=== PATIENT | female | born 1960 | race Caucasian/White ===

== ENCOUNTER → 2017-01-08 | Outpatient (CLI) | payer BC ==
[~2017-01-08] MED LIST: HYDR25TAB PO
[2017-01-08 18:25] LABS: FREE T4 1.42 NG/DL (0.76-1.46)
== END ==
LOC: M LAB 16:36
PROVIDERS: ATTEND Physician Assistant Medical
DX: E03.9 Hypothyroidism, unspecified (principal)

== ENCOUNTER → 2017-06-19 | Outpatient (CLI) | payer BC ==
[2017-06-19 19:05] LABS: FREE T4 1.24 NG/DL (0.76-1.46)
== END ==
LOC: M LAB 17:02
PROVIDERS: ATTEND Internal Medicine Endocrinology, Diabetes & Metabolism
DX: E03.9 Hypothyroidism, unspecified (principal)

== ENCOUNTER → 2018-02-11 | Outpatient (CLI) | payer BC | LOC: M RAD 10:46 | DX: Z12.31 Encounter for screening mammogram for malignant neoplasm of breast (principal) | CPT/HCPCS: 77067 ==

== ENCOUNTER → 2018-06-03 | Outpatient (CLI) | payer BC ==
[2018-06-03 18:24] LABS: FREE T4 1.37 NG/DL (0.76-1.46); THYROID STIMULATING HORMONE 0.074 uIU/ML (0.358-3.740)
== END ==
LOC: M LAB 17:01
DX: E03.9 Hypothyroidism, unspecified (principal)
CPT/HCPCS: 84443

== ENCOUNTER → 2018-09-09 | Outpatient (CLI) | payer BC ==
[2018-09-09 18:16] LABS: FREE T4 1.21 NG/DL (0.76-1.46)
== END ==
LOC: M LAB 17:14
DX: E03.9 Hypothyroidism, unspecified (principal)
CPT/HCPCS: 84443

== ENCOUNTER → 2018-09-09 | Outpatient (CLI) | payer BC ==
[2018-09-09 18:10] LABS: ALBUMIN 3.3 GM/DL (3.2-5.2); ALBUMIN/GLOBULIN RATIO 0.79 (1.00-1.93); ALKALINE PHOSPHATASE 88 U/L (45-117); ALT/SGPT 24 U/L (12-78); ANION GAP 7 MEQ/L (8-16); AST/SGOT 20 U/L (7-37); BILIRUBIN,TOTAL 0.2 MG/DL (0.2-1.0); BLOOD UREA NITROGEN 15 MG/DL (7-18); CALCIUM LEVEL 8.7 MG/DL (8.5-10.1); CARBON DIOXIDE LEVEL 33 MEQ/L (21-32); CHLORIDE LEVEL 104 MEQ/L (98-107); CHOLESTEROL LEVEL 186 MG/DL (<200); CHOLESTEROL RISK RATIO 3.875 (<5); CREATININE FOR GFR 1.21 MG/DL (0.55-1.30); GLOMERULAR FILTRATION RATE 48.8 (>51); GLUCOSE, FASTING 87 MG/DL (70-100); HDL CHOLESTEROL 48 MG/DL (>40); LDL CHOLESTEROL 104 MG/DL (<100); NON-HDL-C 138 MG/DL; POTASSIUM SERUM 3.2 MEQ/L (3.5-5.1); SODIUM LEVEL 144 MEQ/L (136-145); TOTAL PROTEIN 7.5 GM/DL (6.4-8.2); TRIGLYCERIDES LEVEL 168 MG/DL (<150)
[2018-09-09 18:17] LABS: TOTAL 25(OH) VITAMIN D 21.4 NG/ML (30.0-100.0)
== END ==
LOC: M LAB 17:18
DX: Z00.00 Encounter for general adult medical examination without abnormal findings (principal); E55.9 Vitamin D deficiency, unspecified
CPT/HCPCS: 80053

== ENCOUNTER → 2019-01-09 | Outpatient (CLI) | payer BC ==
[2019-01-09 17:54] LABS: FREE T4 1.28 NG/DL (0.76-1.46); THYROID STIMULATING HORMONE 0.39 uIU/ML (0.358-3.740)
== END ==
LOC: M LAB 16:47
PROVIDERS: ATTEND Nurse Practitioner Family
DX: E03.9 Hypothyroidism, unspecified (principal)

== ENCOUNTER → 2019-07-08 | Outpatient (CLI) | payer BC ==
[~2019-07-08] MED LIST changes: +HYDR-2541 PO; -HYDR25TAB PO
[2019-07-08 17:56] LABS: FREE T4 1.36 NG/DL (0.76-1.46); THYROID STIMULATING HORMONE 0.46 uIU/ML (0.358-3.740)
== END ==
LOC: M LAB 16:38
PROVIDERS: ATTEND Nurse Practitioner Family
DX: E03.9 Hypothyroidism, unspecified (principal)

== ENCOUNTER → 2019-09-18 | Outpatient (CLI) | payer BC ==
--- NOTE | 2019-09-18 09:15 | REPMRS ---
Patient History The patient states she has not had a clinical breast exam in over a year. Family history of colorectal cancer under age 50 in brother, colorectal cancer under age 50 in sister, colorectal cancer at age 50 or over in father. Taking unspecified hormones for 3 years. 3D TOMOSYNTHESIS WAS PERFORMED. The [facility] Douglas lifetime risk for breast cancer is 8.9%. Digital Mammo Screening Bilat: September 18, 2019 - Exam #: [id number] Bilateral CC and MLO view(s) were taken. Technologist: Cary Rico, Technologist Prior study comparison: February 11, 2018, bilateral digital mammo screening bilat performed at [facility]. September 06, 2015, digital bilateral screening mammo, performed at [facility]. FINDINGS: The breast tissue is heterogeneously dense. This may lower the sensitivity of mammography. There has been no change in the appearance of the mammogram from the prior studies. There is a moderate amount of residual fibroglandular tissue which is fairly symmetric. There is no interval development of dominant mass, areas of architectural distortion, or clustered microcalcification typical of malignancy. Assessment: BI-RADS/ACR category 1 mammogram. Negative Mammogram. Recommendation Routine screening mammogram in 1 year (for women over age 40). This mammogram was interpreted with the aid of an FDA-approved computer-aided dectection system. Electronically Signed By: Favio Hull MD 09/18/19 0914
== END ==
LOC: M RAD 07:45
PROVIDERS: ATTEND Nurse Practitioner Adult Health
DX: Z12.31 Encounter for screening mammogram for malignant neoplasm of breast (principal); Z80.0 Family history of malignant neoplasm of digestive organs

== ENCOUNTER → 2019-09-23 | Outpatient (CLI) | payer BC ==
[2019-09-23 07:46] LABS: HEMATOCRIT 38.8 % (36.0-47.0); HEMOGLOBIN 12.9 g/dl (12.0-15.5); MEAN CORPUSCULAR HEMOGLOBIN 30.4 pg (27.0-33.0); MEAN CORPUSCULAR HGB CONC 33.2 g/dl (32.0-36.5); MEAN CORPUSCULAR VOLUME 91.5 fl (80.0-96.0); PLATELET COUNT, AUTOMATED 355 10^3/uL (150-450); RED BLOOD COUNT 4.24 10^6/uL (4.00-5.40)
[2019-09-23 08:08] LABS: ALBUMIN 3.3 GM/DL (3.2-5.2); ALT/SGPT 18 U/L (12-78); BILIRUBIN,TOTAL 0.3 MG/DL (0.2-1.0); BLOOD UREA NITROGEN 14 MG/DL (7-18); CALCIUM LEVEL 8.8 MG/DL (8.5-10.1); CARBON DIOXIDE LEVEL 32 MEQ/L (21-32); CHLORIDE LEVEL 105 MEQ/L (98-107); CHOLESTEROL LEVEL 192 MG/DL (<200); CHOLESTEROL RISK RATIO 3.555 (<5); CREATININE FOR GFR 0.97 MG/DL (0.55-1.30); GLOMERULAR FILTRATION RATE > 60.0 (>51); GLUCOSE, FASTING 96 MG/DL (70-100); HDL CHOLESTEROL 54 MG/DL (>40); LDL CHOLESTEROL 119 MG/DL (<100); NON-HDL-C 138 MG/DL; POTASSIUM SERUM 3.6 MEQ/L (3.5-5.1); SODIUM LEVEL 141 MEQ/L (136-145); TOTAL PROTEIN 7.3 GM/DL (6.4-8.2); TRIGLYCERIDES LEVEL 93 MG/DL (<150)
[2019-09-23 09:41] LABS: TOTAL 25(OH) VITAMIN D 23.8 NG/ML (30.0-100.0)
== END ==
LOC: M LAB 07:11
PROVIDERS: ATTEND Nurse Practitioner Adult Health
DX: Z00.00 Encounter for general adult medical examination without abnormal findings (principal); Z12.31 Encounter for screening mammogram for malignant neoplasm of breast; E55.9 Vitamin D deficiency, unspecified

== ENCOUNTER → 2020-04-24 | Outpatient (REF) | payer BC | LOC: M WUC 13:08 | PROVIDERS: ATTEND Nurse Practitioner Family | DX: N39.0 Urinary tract infection, site not specified (principal) ==

== ENCOUNTER → 2020-06-07 | Outpatient (CLI) | payer BC ==
[2020-06-07 18:20] LABS: FREE T4 1.35 NG/DL (0.76-1.46); THYROID STIMULATING HORMONE 0.599 uIU/ML (0.358-3.740)
== END ==
LOC: M LAB 16:46
PROVIDERS: ATTEND Internal Medicine Endocrinology, Diabetes & Metabolism
DX: E03.9 Hypothyroidism, unspecified (principal)

== ENCOUNTER → 2020-09-06 | Outpatient (CLI) | payer BC ==
[2020-09-06 09:41] LABS: ALT/SGPT 20 U/L (12-78); BILIRUBIN,TOTAL 0.4 MG/DL (0.2-1.0); BLOOD UREA NITROGEN 19 MG/DL (7-18); CALCIUM LEVEL 8.8 MG/DL (8.5-10.1); CARBON DIOXIDE LEVEL 33 MEQ/L (21-32); CHLORIDE LEVEL 106 MEQ/L (98-107); CHOLESTEROL LEVEL 183 MG/DL (<200); CREATININE FOR GFR 0.99 MG/DL (0.55-1.30); GLOMERULAR FILTRATION RATE > 60.0 (>51); GLUCOSE, FASTING 83 MG/DL (70-100); POTASSIUM SERUM 3.8 MEQ/L (3.5-5.1); SODIUM LEVEL 141 MEQ/L (136-145); TRIGLYCERIDES LEVEL 107 MG/DL (<150)
[2020-09-06 09:42] LABS: ALBUMIN 3.4 GM/DL (3.2-5.2); CHOLESTEROL RISK RATIO 3.388 (<5); HDL CHOLESTEROL 54 MG/DL (>40); LDL CHOLESTEROL 108 MG/DL (<100); NON-HDL-C 129 MG/DL; TOTAL PROTEIN 7.1 GM/DL (6.4-8.2)
[2020-09-06 10:19] LABS: TOTAL 25(OH) VITAMIN D 68.8 NG/ML (30.0-100.0)
== END ==
LOC: M LAB 08:32
PROVIDERS: ATTEND Nurse Practitioner Adult Health
DX: E55.9 Vitamin D deficiency, unspecified (principal)

== ENCOUNTER → 2020-09-25 | Outpatient (CLI) | payer SELFPAY | LOC: M LABSMTC 08:12 | PROVIDERS: ATTEND Pediatrics | DX: Z20.828 Contact with and (suspected) exposure to other viral communicable diseases (principal) ==

== ENCOUNTER → 2020-10-18 | Outpatient (CLI) | payer BC ==
--- NOTE | 2020-10-18 08:55 | REPMRS ---
Patient History The patient states she has not had a clinical breast exam in over a year. Family history of colorectal cancer under age 50 in brother, colorectal cancer under age 50 in sister, colorectal cancer at age 50 or over in father. Took unspecified hormones for 3 years. 3D TOMOSYNTHESIS WAS PERFORMED. [facility]%. Volpara breast density b. Digital Woman Screen Mammo: October 18, 2020 - Exam #: [id number] Bilateral CC and MLO view(s) were taken. Technologist: Joyce Pang, Technologist Prior study comparison: September 18, 2019, bilateral digital mammo screening bilat, performed at [facility]. February 11, 2018, bilateral digital mammo screening bilat, performed at [facility]. FINDINGS: There are scattered fibroglandular densities. There has been no change in the appearance of the mammogram from the prior studies. There is a mild amount of residual fibroglandular tissue which is fairly symmetric. There is no interval development of dominant mass, architectural distortion, or clustered microcalcification suggestive of malignancy. Assessment: BI-RADS/ACR category 1 mammogram. Negative Mammogram. Recommendation Routine screening mammogram in 1 year (for women over age 40). This mammogram was interpreted with the aid of an FDA-approved computer-aided dectection system. Electronically Signed By: Favio Hull MD 10/18/20 0855
== END ==
LOC: M WHC 07:50
PROVIDERS: ATTEND Nurse Practitioner Adult Health
DX: Z12.31 Encounter for screening mammogram for malignant neoplasm of breast (principal); Z80.0 Family history of malignant neoplasm of digestive organs

== ENCOUNTER → 2021-03-08 | Outpatient (CLI) | payer BC ==
--- NOTE | 2021-03-08 10:23 | REP ---
INDICATION: VAGINAL BLEEDING COMPARISON: None. TECHNIQUE: Transabdominal pelvic ultrasound followed by transvaginal examination for better evaluation of the endometrium and adnexa. FINDINGS: Bladder is unremarkable and measures 12.4 x 7.6 x 9.3 cm. Heterogeneous anteverted uterus measures 8.3 x 3.7 x 5.3 cm. The endometrial complex measures 13 mm thickness and there is suggestion for 1 x 1 x 1.3 cm hyperechoic focus possible polyp. 1.4 x 1.3 x 1.2 cm left intramural fibroid and 3.4 x 3.1 x 2.3 cm right subserosal fibroid suggested. Ovaries not identified on either transabdominal or transvaginal imaging. IMPRESSION: 1. Possible 13 mm endometrial polyp. 2. 1.4 cm and 3.4 cm uterine fibroids noted. 3. Ovaries not visualized on either transabdominal or transvaginal imaging. <Electronically signed by Escobar Mendez > 03/08/21 1012
== END ==
LOC: M RAD 09:38
PROVIDERS: ATTEND Nurse Practitioner Adult Health
DX: N93.0 Postcoital and contact bleeding (principal); D25.2 Subserosal leiomyoma of uterus; D25.1 Intramural leiomyoma of uterus

== ENCOUNTER → 2021-04-23 | Outpatient (CLI) | payer BC ==
[~2021-04-23] MED LIST changes: +BIOT50004 PO; +D31000TA2 PO; +HYDR-3490 PO; +LEVO100T5 PO
== END ==
LOC: M LABSMTC 11:28
PROVIDERS: ATTEND Anesthesiology
DX: Z01.818 Encounter for other preprocedural examination (principal); Z11.52 Encounter for screening for COVID-19

== ENCOUNTER 2021-04-28 08:31 | Day surgery (SDC) | payer BC ==
[~2021-04-28] VITALS: Ht 160 cm; Wt 81.6 kg
[~2021-04-28 08:31] MED LIST changes: +LIDOCAINE 2% 100MG/5ML SDV (FOR ANES.) As Ordered ONE; +LR 1,000 ML IV ONE; +MIDAZOLAM INJ 2MG/2ML VIAL (J2250 PER 1MG) As Ordered ONE; +fentaNYL 100 MCG/2 ML INJECTION (J3010) As Ordered ONE; +propofoL 200 MG/20 ML VIAL As Ordered ONE
[2021-04-28] MEDS ORDERED: ACETAMINOPHEN 1000MG 100ML IV BTL (OFIRMEV) (J0131 PER 10MG) As Ordered ONE (11:11)
[2021-04-28] MEDS ORDERED: fentaNYL 100 MCG/2 ML INJECTION (J3010) IV PRN (12:10)
[2021-04-28] MEDS ORDERED: oxyCODONE 5MG TAB PO PRN (12:10)
[2021-04-28] MEDS ORDERED: ONDANSETRON 4MG/2ML VIAL IV PRN (12:10)
[2021-04-28] MEDS ORDERED: LR 1,000 ML IV SCH ×2 (12:10)
--- NOTE | 2021-04-28 19:23 | RO ---
OPERATIVE NOTE DATE OF OPERATION: 04/28/2021 PREOPERATIVE DIAGNOSIS/INDICATION FOR SURGERY: Post-menopausal bleeding with abnormal sonogram. POSTOPERATIVE DIAGNOSIS/INDICATION FOR SURGERY: 1. Post-menopausal bleeding with abnormal sonogram. 2. Polyps found. PROCEDURE: 1. Dilatation and curettage with hysteroscopy. 2. MyoSure resection of polyps. SURGEON: Lanny Portillo MD STRATEGIC ACCOUNT MANAGER: None. ANESTHESIA: LMA. SPECIMEN: Endometrium with polyps. BRIEF DESCRIPTION OF PROCEDURE AND FINDINGS: Reta was brought to the operating room where sufficient LMA anesthesia was induced. She was prepped, draped, and positioned in the usual sterile fashion with the Jefferson retractor used to visualize the cervix, which was grasped with a single tooth tenaculum. Of course, she was catheterized just to keep the bladder empty and away from the field of dissection. Then, using the single tooth to stabilize the cervix, the uterus was sounded to 8. The cervix was carefully dilated. The hysteroscope was placed. Polyps, at least one of which had a fairly broad-based extending towards the cervix, were noted. The MyoSure reach device was used to resect these in a progressive fashion working from fundus to cervix. The view was somewhat restricted by bleeding because the base of these polyps was fairly broad, but the ostia themselves were normal, the endometrial cavity contour was normal with the exception of these polyps. We were able to resect them progressively towards the cervix. All of the specimen was sent to the pathologist. Curettage after the resection confirmed normal uterine cry throughout. The procedure was ended. ESTIMATED BLOOD LOSS: About 5 mL. FLUID REPLACEMENT: Crystalloid. COMPLICATIONS: None. CONDITION AND DISPOSITION: Reta tolerated the procedure well and was recovering in the recovery room in good condition.
== END 2021-04-28 13:35 | disposition home or self-care (01) ==
LOC: M SDC 08:31
PROVIDERS: ATTEND Obstetrics & Gynecology
DX: C54.1 Malignant neoplasm of endometrium (principal); I10 Essential (primary) hypertension; E03.9 Hypothyroidism, unspecified; E04.1 Nontoxic single thyroid nodule; Z79.899 Other long term (current) drug therapy
CPT/HCPCS: 58558; 88305; J0131; J2250; J3010

== ENCOUNTER → 2021-06-13 | Outpatient (CLI) | payer BC ==
[~2021-06-13] MED LIST changes: -LIDOCAINE 2% 100MG/5ML SDV (FOR ANES.) As Ordered ONE; -LR 1,000 ML IV ONE; -MIDAZOLAM INJ 2MG/2ML VIAL (J2250 PER 1MG) As Ordered ONE; -fentaNYL 100 MCG/2 ML INJECTION (J3010) As Ordered ONE; -propofoL 200 MG/20 ML VIAL As Ordered ONE
== END ==
LOC: M LAB 16:51
PROVIDERS: ATTEND Internal Medicine Endocrinology, Diabetes & Metabolism
DX: E03.9 Hypothyroidism, unspecified (principal)

== ENCOUNTER → 2021-09-03 | Outpatient (CLI) | payer BC ==
[2021-09-03 10:50] LABS: FREE T4 1.71 NG/DL (0.76-1.46); THYROID STIMULATING HORMONE 0.144 uIU/ML (0.358-3.740)
== END ==
LOC: M LAB 09:09
PROVIDERS: ATTEND Internal Medicine Endocrinology, Diabetes & Metabolism
DX: E03.9 Hypothyroidism, unspecified (principal)

== ENCOUNTER → 2021-09-03 | Outpatient (CLI) | payer BC ==
[2021-09-03 09:35] LABS: HEMATOCRIT 38.4 % (36.0-47.0); MEAN CORPUSCULAR HEMOGLOBIN 29.9 pg (27.0-33.0); MEAN CORPUSCULAR HGB CONC 33.9 g/dl (32.0-36.5); MEAN CORPUSCULAR VOLUME 88.3 fl (80.0-96.0); PLATELET COUNT, AUTOMATED 332 10^3/uL (150-450); RED BLOOD COUNT 4.35 10^6/uL (4.00-5.40); WHITE BLOOD COUNT 8.3 10^3/uL (4.0-10.0)
[2021-09-03 10:05] LABS: HEMOGLOBIN A1c 5.3 %
[2021-09-03 10:40] LABS: ALBUMIN 3.6 GM/DL (3.2-5.2); BILIRUBIN,TOTAL 0.5 MG/DL (0.2-1.0); CALCIUM LEVEL 9.1 MG/DL (8.8-10.2); CHOLESTEROL RISK RATIO 3.517 (<5); CREATININE FOR GFR 1.09 MG/DL (0.55-1.30); GLOMERULAR FILTRATION RATE 54.5 (>45); POTASSIUM SERUM 3.9 MEQ/L (3.5-5.1); TOTAL PROTEIN 7.1 GM/DL (6.4-8.2)
[2021-09-05 10:12] LABS: TOTAL 25(OH) VITAMIN D 78.9 NG/ML (30.0-100.0)
== END ==
LOC: M LAB 09:11
PROVIDERS: ATTEND Nurse Practitioner Adult Health
DX: Z00.00 Encounter for general adult medical examination without abnormal findings (principal); I10 Essential (primary) hypertension; E66.9 Obesity, unspecified; E55.9 Vitamin D deficiency, unspecified

== ENCOUNTER → 2021-11-07 | Outpatient (CLI) | payer BC ==
[2021-11-07 18:29] LABS: FREE T4 1.12 NG/DL (0.76-1.46); THYROID STIMULATING HORMONE 0.906 uIU/ML (0.358-3.740)
== END ==
LOC: M LAB 16:37
PROVIDERS: ATTEND Internal Medicine Endocrinology, Diabetes & Metabolism
DX: E03.9 Hypothyroidism, unspecified (principal)

== ENCOUNTER → 2021-11-15 | Outpatient (CLI) | payer BC | LOC: M WHC 07:47 | PROVIDERS: ATTEND Nurse Practitioner Adult Health | DX: N60.01 Solitary cyst of right breast (principal) | CPT/HCPCS: 76642; 77065; G0279 ==

== ENCOUNTER → 2021-12-27 | Outpatient (REF) | payer BC ==
[~2021-12-27] MED LIST changes: -D31000TA2 PO; +VITA100093 PO
== END ==
LOC: M SFHCPLAZ 10:27
PROVIDERS: ATTEND Nurse Practitioner Adult Health
DX: Z12.4 Encounter for screening for malignant neoplasm of cervix (principal); C54.1 Malignant neoplasm of endometrium; Z77.9 Other contact with and (suspected) exposures hazardous to health

== ENCOUNTER → 2022-06-28 | Outpatient (CLI) | payer BC | LOC: M RAD 09:09 → M LAB 09:09 | PROVIDERS: ATTEND Nurse Practitioner Adult Health | DX: C54.1 Malignant neoplasm of endometrium (principal); M25.512 Pain in left shoulder; Z12.4 Encounter for screening for malignant neoplasm of cervix; M47.812 Spondylosis without myelopathy or radiculopathy, cervical region | CPT/HCPCS: 72052; 73030; G0123 ==

== ENCOUNTER 2022-07-13 07:15 | Outpatient (RCR) | payer BC | END 2022-07-14 | LOC: M PT 07:15 | PROVIDERS: ATTEND Nurse Practitioner Adult Health | DX: M54.2 Cervicalgia (principal); M25.512 Pain in left shoulder ==

== ENCOUNTER 2022-08-08 06:58 | Outpatient (RCR) | payer BC | END 2022-08-14 | LOC: M PT 06:58 | PROVIDERS: ATTEND Nurse Practitioner Adult Health | DX: M54.2 Cervicalgia (principal); M25.512 Pain in left shoulder ==

== ENCOUNTER → 2022-08-28 | Outpatient (CLI) | payer BC | LOC: M LAB 12:27 | PROVIDERS: ATTEND Internal Medicine Endocrinology, Diabetes & Metabolism | DX: E03.9 Hypothyroidism, unspecified (principal) ==

== ENCOUNTER → 2022-09-13 | Outpatient (RCR) | payer BC | LOC: M PT 08-21 07:00 | PROVIDERS: ATTEND Nurse Practitioner Adult Health | DX: M54.2 Cervicalgia (principal); M25.512 Pain in left shoulder ==

== ENCOUNTER → 2022-09-27 | Outpatient (CLI) | payer BC ==
[2022-09-27 17:21] LABS: FREE T4 1.43 NG/DL (0.89-1.76); THYROID STIMULATING HORMONE 0.835 uIU/ML (0.55-4.78)
== END ==
LOC: M LAB 16:37
PROVIDERS: ATTEND Nurse Practitioner Family
DX: E03.9 Hypothyroidism, unspecified (principal)

== ENCOUNTER → 2022-12-26 | Outpatient (REF) | payer BC | LOC: M SFHCPLAZ 13:05 | PROVIDERS: ATTEND Nurse Practitioner Adult Health | DX: Z01.419 Encounter for gynecological examination (general) (routine) without abnormal findings (principal); C54.1 Malignant neoplasm of endometrium ==

== ENCOUNTER → 2023-02-12 | Outpatient (CLI) | payer BC | LOC: M WHC 17:10 | PROVIDERS: ATTEND Nurse Practitioner Adult Health | DX: Z12.31 Encounter for screening mammogram for malignant neoplasm of breast (principal); Z53.9 Procedure and treatment not carried out, unspecified reason ==

== ENCOUNTER → 2023-02-13 | Outpatient (CLI) | payer BC | LOC: M WHC 08:21 | PROVIDERS: ATTEND Nurse Practitioner Adult Health | DX: Z12.31 Encounter for screening mammogram for malignant neoplasm of breast (principal); C54.1 Malignant neoplasm of endometrium ==

== ENCOUNTER → 2023-05-08 | Outpatient (CLI) | payer BC ==
[2023-05-08 17:52] LABS: APPEARANCE, URINE HAZY (CLEAR); BACTERIA, URINE AUTO NEGATIVE (NEGATIVE); BILIRUBIN, URINE AUTO NEGATIVE (NEGATIVE); BLOOD, URINE BLOOD 2+ (NEGATIVE); COLOR, URINE YELLOW (YELLOW); GLUCOSE, URINE (UA) AUTO NEGATIVE (NEGATIVE); KETONE, URINE AUTO NEGATIVE (NEGATIVE); LEUKOCYTE ESTERASE, URINE AUTO TRACE (NEGATIVE); MUCUS, URINE SMALL (NEGATIVE); NITRITE, URINE AUTO NEGATIVE (NEGATIVE); PROTEIN, URINE AUTO NEGATIVE (NEGATIVE); RBC, URINE AUTO 74 /HPF (0-3); SPECIFIC GRAVITY URINE AUTO 1.016 (1.002-1.035); SQUAMOUS EPITHELIAL CELL UR AU 3 /HPF (0-6); UROBILINOGEN, URINE AUTO 0.2 mg/dL (0.0-2.0); WBC, URINE AUTO 9 /HPF (0-3)
[2023-05-08 17:54] LABS: BASO # 0.1 10^3/uL (0.0-0.2); BASO % 0.5 % (0.0-1.0); EOS # 0.1 10^3/uL (0.0-0.5); HEMOGLOBIN 13.2 g/dl (12.0-15.5); LYMPH # 2.9 10^3/uL (1.5-5.0); LYMPH % 30.1 % (24.0-44.0); MEAN CORPUSCULAR VOLUME 90.9 fl (80.0-96.0); MONO # 0.4 10^3/uL (0.0-0.8); MONO % 4.4 % (2.0-8.0); NEUTROPHILS # 6.1 10^3/uL (1.5-8.5); NEUTROPHILS % 63.3 % (36.0-66.0); PLATELET COUNT, AUTOMATED 387 10^3/uL (150-450); WHITE BLOOD COUNT 9.7 10^3/uL (4.0-10.0)
[2023-05-08 18:16] LABS: LIPASE 36 U/L (12-53)
[2023-05-08 18:18] LABS: ALBUMIN 3.9 G/DL (3.2-5.2); ALKALINE PHOSPHATASE 87 U/L (46-116); ALT/SGPT 15 U/L (7.0-40); AST/SGOT 14 U/L (<34); BILIRUBIN,TOTAL 0.4 MG/DL (0.3-1.2); BLOOD UREA NITROGEN 18 MG/DL (9-23); CALCIUM LEVEL 9.2 MG/DL (8.3-10.6); CARBON DIOXIDE LEVEL 29 MMOL/L (20-31); CHLORIDE LEVEL 103 MMOL/L (98-107); CREATININE FOR GFR 0.94 MG/DL (0.55-1.30); GLOMERULAR FILTRATION RATE > 60.0 (>45); GLUCOSE, FASTING 80 MG/DL (74-106); POTASSIUM SERUM 3.7 MMOL/L (3.5-5.1); SODIUM LEVEL 141 MMOL/L (136-145); TOTAL PROTEIN 7.5 G/DL (5.7-8.2)
[2023-05-08 18:20] LABS: THYROID STIMULATING HORMONE 1.004 uIU/ML (0.55-4.78)
== END ==
LOC: M LAB 16:03
PROVIDERS: ATTEND Physician Assistant
DX: R10.31 Right lower quadrant pain (principal)

== ENCOUNTER → 2023-05-09 | Outpatient (CLI) | payer BC ==
[~2023-05-09] MED LIST changes: +GASTROGRAFIN SOLUTION 30ML ONE; +ISOVUE-370 76% 100ML VIAL ONE
== END ==
LOC: M PLAIMG 08:39
PROVIDERS: ATTEND Physician Assistant
DX: R10.31 Right lower quadrant pain (principal)
CPT/HCPCS: 74178; Q9963; Q9967

== ENCOUNTER → 2023-07-02 | Outpatient (REF) | payer BC ==
[~2023-07-02] MED LIST changes: -GASTROGRAFIN SOLUTION 30ML ONE; -ISOVUE-370 76% 100ML VIAL ONE
== END ==
LOC: M SFHCPLAZ 13:23
PROVIDERS: ATTEND Nurse Practitioner Adult Health
DX: Z08 Encounter for follow-up examination after completed treatment for malignant neoplasm (principal); Z12.4 Encounter for screening for malignant neoplasm of cervix; Z85.42 Personal history of malignant neoplasm of other parts of uterus

== ENCOUNTER → 2023-08-21 | Outpatient (CLI) | payer BC ==
[2023-08-21 18:09] LABS: FREE T4 1.33 NG/DL (0.89-1.76); THYROID STIMULATING HORMONE 0.614 uIU/ML (0.55-4.78)
== END ==
LOC: M LAB 16:36
PROVIDERS: ATTEND Nurse Practitioner Family
DX: E03.9 Hypothyroidism, unspecified (principal)

== ENCOUNTER → 2024-01-03 | Outpatient (CLI) | payer BC ==
[~2024-01-03] MED LIST changes: -BIOT50004 PO; +BIOT5CAP8 PO
[2024-01-03 08:14] LABS: ALBUMIN 3.3 G/DL (3.2-5.2); ALKALINE PHOSPHATASE 84 U/L (46-116); ALT/SGPT 12 U/L (7.0-40); AST/SGOT 15 U/L (<34); BILIRUBIN,TOTAL 0.5 MG/DL (0.3-1.2); BLOOD UREA NITROGEN 15 MG/DL (9-23); CALCIUM LEVEL 8.8 MG/DL (8.3-10.6); CARBON DIOXIDE LEVEL 32 MMOL/L (20-31); CHLORIDE LEVEL 104 MMOL/L (98-107); CHOLESTEROL LEVEL 175 MG/DL (<200); CHOLESTEROL RISK RATIO 3.93 (<5); CREATININE FOR GFR 0.93 MG/DL (0.55-1.30); GLOMERULAR FILTRATION RATE > 60.0 (>45); GLUCOSE, FASTING 90 MG/DL (74-106); HDL CHOLESTEROL 44.5 MG/DL (>40); LDL CHOLESTEROL 107.9 MG/DL (<100); NON-HDL-C 130.5 MG/DL; POTASSIUM SERUM 3.6 MMOL/L (3.5-5.1); SODIUM LEVEL 142 MMOL/L (136-145); TOTAL PROTEIN 6.6 G/DL (5.7-8.2); TRIGLYCERIDES LEVEL 113 MG/DL (<150)
[2024-01-03 08:16] LABS: TOTAL 25(OH) VITAMIN D 88.9 NG/ML (20.0-100.0)
== END ==
LOC: M LAB 07:16
PROVIDERS: ATTEND Nurse Practitioner Adult Health
DX: Z12.31 Encounter for screening mammogram for malignant neoplasm of breast (principal); I10 Essential (primary) hypertension; E55.9 Vitamin D deficiency, unspecified

== ENCOUNTER → 2024-01-09 | Outpatient (REF) | payer BC | LOC: M SFHCPLAZ 13:25 | PROVIDERS: ATTEND Nurse Practitioner Adult Health | DX: Z01.419 Encounter for gynecological examination (general) (routine) without abnormal findings (principal); C54.1 Malignant neoplasm of endometrium | CPT/HCPCS: 87624; G0123 ==

== ENCOUNTER → 2024-02-22 | Outpatient (CLI) | payer BC | LOC: M WHC 08:37 | PROVIDERS: ATTEND Nurse Practitioner Adult Health | DX: Z12.31 Encounter for screening mammogram for malignant neoplasm of breast (principal) ==

== ENCOUNTER 2024-06-26 10:20 | Day surgery (SDC) | payer BC ==
[~2024-06-26] VITALS: Ht 160 cm; Wt 83.2 kg
[~2024-06-26 10:20] MED LIST changes: +LEVO88TA3 PO
[2024-06-26] MEDS: NS 1,000 ML IV ONE (10:37)
[2024-06-26] MEDS ORDERED: LIDOCAINE 2% 100MG/5ML SDV (FOR ANES.) As Ordered ONE (11:10)
[2024-06-26] MEDS ORDERED: fentaNYL 100 MCG/2 ML INJECTION As Ordered ONE (11:10)
[2024-06-26] MEDS ORDERED: propofoL 500 MG/50 ML VIAL As Ordered ONE (11:10)
[2024-06-26 12:35] VITALS: TEMP 97
[2024-06-26 13:00] VITALS: BP 145/85; O2SAT 99
== END 2024-06-26 13:10 | disposition home or self-care (01) ==
LOC: M OPP 10:20
PROVIDERS: ATTEND Internal Medicine Gastroenterology
DX: Z12.11 Encounter for screening for malignant neoplasm of colon (principal); Z80.0 Family history of malignant neoplasm of digestive organs; D12.3 Benign neoplasm of transverse colon; K64.8 Other hemorrhoids; K57.30 Diverticulosis of large intestine without perforation or abscess without bleeding; K31.7 Polyp of stomach and duodenum; K44.9 Diaphragmatic hernia without obstruction or gangrene; K29.70 Gastritis, unspecified, without bleeding; K29.80 Duodenitis without bleeding; E03.9 Hypothyroidism, unspecified; Z79.890 Hormone replacement therapy; Z79.899 Other long term (current) drug therapy
CPT/HCPCS: 43239; 43251; 45385; 88305; J3010

== ENCOUNTER → 2024-06-30 | Outpatient (REF) | payer BC | LOC: M SFHCPLAZ 13:02 | PROVIDERS: ATTEND Nurse Practitioner Adult Health | DX: Z12.4 Encounter for screening for malignant neoplasm of cervix (principal); C54.1 Malignant neoplasm of endometrium; Z77.9 Other contact with and (suspected) exposures hazardous to health ==

== ENCOUNTER → 2024-08-08 | Outpatient (CLI) | payer BC ==
[2024-08-08 18:06] LABS: FREE T4 1.44 NG/DL (0.89-1.76); THYROID STIMULATING HORMONE 1.083 uIU/ML (0.55-4.78)
== END ==
LOC: M LAB 16:58
PROVIDERS: ATTEND Nurse Practitioner Family
DX: E03.9 Hypothyroidism, unspecified (principal)

== ENCOUNTER → 2025-01-07 | Outpatient (REF) | payer BC | LOC: M SFHCPLAZ 13:11 | PROVIDERS: ATTEND Nurse Practitioner Adult Health | DX: Z01.419 Encounter for gynecological examination (general) (routine) without abnormal findings (principal); C54.1 Malignant neoplasm of endometrium ==

== ENCOUNTER → 2025-01-30 | Outpatient (CLI) | payer BC ==
[2025-01-30 08:49] LABS: FREE T4 1.4 NG/DL (0.89-1.76); THYROID STIMULATING HORMONE 0.569 uIU/ML (0.55-4.78); TOTAL 25(OH) VITAMIN D 81.6 NG/ML (20.0-100.0)
[2025-01-30 08:52] LABS: ALBUMIN 3.3 G/DL (3.2-5.2); BILIRUBIN,TOTAL 0.4 MG/DL (0.3-1.2); CALCIUM LEVEL 9.1 MG/DL (8.3-10.6); CHOLESTEROL RISK RATIO 3.81 (<5); CREATININE FOR GFR 1.01 MG/DL (0.55-1.30); GLOMERULAR FILTRATION RATE 62.6 (>45); HDL CHOLESTEROL 49.8 MG/DL (>40); LDL CHOLESTEROL 118.6 MG/DL (<100); NON-HDL-C 140.2 MG/DL; POTASSIUM SERUM 4.2 MMOL/L (3.5-5.1); TOTAL PROTEIN 6.9 G/DL (5.7-8.2)
== END ==
LOC: M LAB 07:16
PROVIDERS: ATTEND Nurse Practitioner Adult Health
DX: E78.2 Mixed hyperlipidemia (principal); I10 Essential (primary) hypertension; E55.9 Vitamin D deficiency, unspecified; E03.9 Hypothyroidism, unspecified

== ENCOUNTER → 2025-01-30 | Outpatient (CLI) | payer BC ==
[2025-01-30 08:51] LABS: THYROID STIMULATING HORMONE 0.549 uIU/ML (0.55-4.78)
[2025-01-30 08:52] LABS: FREE T4 1.41 NG/DL (0.89-1.76)
== END ==
LOC: M LAB 07:14
PROVIDERS: ATTEND Nurse Practitioner Family
DX: E03.9 Hypothyroidism, unspecified (principal)

== ENCOUNTER → 2025-07-08 | Outpatient (REF) | payer BC | LOC: M SFHCDERM 13:15 | PROVIDERS: ATTEND Physician Assistant | DX: C44.329 Squamous cell carcinoma of skin of other parts of face (principal) ==